=== PATIENT | female | born 1970 | race Caucasian/White ===

== ENCOUNTER 2019-12-16 15:34 | Emergency (ER) | payer OTHER, SELFPAY ==
--- NOTE | ~2019-12-16 | XR_ITS ---
XR chest 1V portable DATE: 12/16/2019 16:55 INDICATION: Cough, shortness of breath, fever TECHNIQUE: Portable AP chest on 12/16/2019 at 1655 hours. COMPARISON: None FINDINGS: Normal heart size. No hilar or mediastinal enlargement. There is minimal atelectasis at the lung bases. No pulmonary infiltrate or consolidation is noted otherwise. Small right pleural effusio n is not excluded. No pneumothorax. IMPRESSION: Minimal bilateral basilar atelectasis; possible small right pleural effusion Reviewed, dictated and finalized at location A.
--- NOTE | ~2019-12-16 | CT_ITS ---
EXAMINATION: CTA chest PE protocol DATE: 12/16/2019 17:50 INDICATION: Shortness of breath. Cough. Elevated d-dimer. TECHNIQUE: Computed tomography angiography (CTA) of the chest was performed with 100 mL Omnipaque-350 intravenous contrast timed to evaluate the pulmonary arteries. Coronal maximum intensity projection 3D-reconstructions were created by the technologist. Automated exposure control and iterative reconst ruction technique were employed. Exam dose: 175.94 mGy-cm total exam DLP. COMPARISON: 12/16/2019 portable AP chest FINDINGS: The pulmonary arteries are moderately opacified, without evidence of pulmonary embolism. No thoracic aortic aneurysm or dissection. Normal heart size. No pericardial or pleural effusion. No hilar or mediastinal mass lesion or lymphadenopathy is detected. There is prominent discoid atelectasis or scarring in the right lower lobe and to a lesser extent lef t base of the lingula and lower lobe. IMPRESSION: Lingular and bilateral lower lobe discoid atelectasis or scarring No evidence of pulmonary embolism is detected Reviewed, dictated and finalized at [facility]. Reviewed, dictated and finalized at location A.
[2019-12-16 15:47] VITALS: BP 120/86; PULSE 112; RESP 16; TEMP 36.2; O2SAT 99
--- NOTE | 2019-12-16 16:24 | ECG_ITS ---
Measurements Intervals Clubb Rate: 111 P: 1 VA: 168 QRS: 52 QRSD: 88 T: 49 QT: 321 QTc: 438 Interpretive Statements SINUS TACHYCARDIA NONSPECIFIC T-WAVE ABNORMALITY- INFERIOR LEADS MINIMAL Q WAVES- LATERAL LEADS ABNORMAL ECG Electronically Signed On 12-16-2019 20:35:55 CDT by Will Gutierrez D.O.
[2019-12-16] MEDS: KETOROLAC 30 MG/ML VIAL (*BKC) IV PUSH (16:44)
[2019-12-16] MEDS: SODIUM CHLORIDE 0.9% IV 1,000 ML 999 ML IV CONT (16:44)
[2019-12-16 16:51] VITALS: BP 119/89; PULSE 110; RESP 18; O2SAT 95
[2019-12-16 17:00] LABS: Basophils Percent Auto 0.5 % (0.2-1.2); Hematocrit 38.8 % (37.0-47.0); Hemoglobin 12.8 g/dL (12.0-15.0); Immature Granulocyte Absolute 0.02 K/mm3 (0.00-0.031); Immature Granulocyte Percent A 0.3 % (0-0.5); Lymphocytes Absolute Auto 0.78 K/mm3 (0.9-3.2); Lymphocytes Percent Auto 12.3 % (18.3-44.2); Mean Corpuscular Hemoglobin 28.4 pg (26-34); Mean Corpuscular Volume 86.2 fl (80-100); Mean Platelet Volume 10.5 fl (7.4-10.4); Monocytes Absolute Auto 0.6 K/mm3 (0.1-0.6); Monocytes Percent Auto 10.1 % (2.6-8.5); Neutrophils Absolute Auto 4.9 K/mm3 (1.3-6.7); Neutrophils Percent Auto 76.8 % (45.5-73.1); Platelet Count Result 206 k/mm3 (150-375); Red Cell Distribution Width 13.6 % (11.5-14.5); White Blood Count 6.3 K/mm3 (4.5-10.0)
--- NOTE | 2019-12-16 17:01 | ED.HA ---
HPI - Headache General Chief Complaint: Headache Stated Complaint: HEADACHE, COUGH, WEAK Time Seen by Provider: 12/16/19 15:50 Source: patient Mode of arrival: ambulatory Limitations: no limitations History of Present Illness HPI Narrative: This is a 49 year old female that presents to the ER for cold symptoms x 2 days. Reports congestion, headache, and cough. Also reports nausea and vomiting. Reports fevers. Denies abdominal pain, diarrhea or dysuria. Related Data Allergies Allergy/AdvReac Type Severity Reaction Status Date / Time No Known Allergies Allergy Unverified 12/16/19 15:50 Review of Systems Review of Systems: Narrative: CONSTITUTIONAL: Reports fever EYES: Denies visual changes ENT: Reports rhinorrhea, congestion CARDIOVASCULAR: Denies chest pain, or edema. RESPIRATORY: Reports cough and dyspnea. GASTROINTESTINAL: Reports nausea and vomiting. Denies abdominal pain, or diarrhea. GENITOURINARY: Denies dysuria NEUROLOGIC: Reports headache. Denies numbness, or weakness. All systems reviewed & are unremarkable except as noted in HPI and below PMFSH Past Medical History Medical History (Updated 12/16/19 @ 19:23 by Sandi Manning PA-C) No active medical problems Social History Social History (Updated 12/16/19 @ 17:04 by Sandi Manning PA-C) Substance use: never Gender identity (if verbalized by the patient): Female Exam Narrative: Exam Narrative: GENERAL: Well-appearing, well-nourished, and in no acute distress. HEAD: Normocephalic, atraumatic. EYES: PERRLA and EOMI. ENT: Nares clear, no rhinorrhea or epistaxis. Mucous membranes moist. Oropharynx without tonsillar hypertrophy exudate or other lesions. Bilateral TMs pearly boo non-bulging NECK: Supple. No adenopathy or masses. CHEST: Clear to auscultation. No respiratory distress. No wheezes rales or rhonchi HEART: Regular rate and rhythm. No murmur heard. Normal peripheral pulses. ABDOMEN: Soft, nontender, nondistended, normal active bowel sounds. EXTREMITIES: Normal range of motion. No edema. SKIN: Warm, dry, no rash. NEURO: No focal deficits. Alert and oriented x3. Cranial nerves II through XII grossly intact PSYCH: Normal mood and affect Course Vital Signs Vital signs: Vital Signs Temperature 97.2 F L 12/16/19 15:47 Pulse Rate 112 H 12/16/19 15:47 Respiratory Rate 16 12/16/19 15:47 Blood Pressure 120/86 12/16/19 15:47 Pulse Oximetry 99 12/16/19 15:47 Temperature 97.2 F L 12/16/19 17:14 Pulse Rate 99 12/16/19 18:08 Respiratory Rate 18 12/16/19 18:08 Blood Pressure 113/81 12/16/19 18:08 Pulse Oximetry 96 12/16/19 18:08 MDM - Headache MDM Narrative Medical decision making narrative: Patient presents to the emergency department for cold symptoms x2 days. She is afebrile and nontoxic-appearing. Tachycardic upon arrival, this normalized with IV fluids. CBC and metabolic panel without acute findings. CRP and lactic are not elevated. Influenza screen was negative. SARS-CoV-2 was sent. D-dimer was elevated, so CTA of the chest was obtained. No evidence of pulmonary embolism or pneumonia. Patient was updated on case findings. She reports relief with migraine cocktail. She is stable and felt appropriate for further outpatient evaluation. She was given warnings to return to the ER Lab Data Attestation: I reviewed the patient's lab results. Result diagrams: 12/16/19 16:40 12/16/19 16:40 Labs: Lab Results 12/16/19 12/16/19 12/16/19 Range/Units 16:40 16:40 16:40 WBC 6.3 (4.5-10.0) K/mm3 RBC 4.50 (4.2-5.4) M/mm3 Hgb 12.8 (12.0-15.0) g/dL Hct 38.8 (37.0-47.0) % MCV 86.2 (80-100) fl MCH 28.4 (26-34) pg MCHC 33.0 (32-36) g/dl RDW 13.6 (11.5-14.5) % Plt Count 206 (150-375) k/mm3 MPV 10.5 H (7.4-10.4) fl Immature Gran % (Auto) 0.3 (0-0.5) % Neut % (Auto) 76.8 H (45.5-73.1) % Lymph % (Auto) 12.3 L (18.3-44.2) %
[2019-12-16 17:08] LABS: INR 1.1; Prothrombin Time 13.4 Seconds (11.1-14.7)
[2019-12-16 17:09] LABS: Partial Thromboplastin Time 63.1 SECONDS (22.3-36.8)
[2019-12-16 17:11] LABS: Lactic Acid Reflex 0.7 mmol/L (0.7-2.1)
[2019-12-16 17:14] VITALS: TEMP 36.2
[2019-12-16 17:15] LABS: Alanine Aminotransferase 23 U/L (4-35); Albumin Level 4.4 g/dL (3.5-5.1); Alkaline Phosphatase 77 U/L (38-126); Anion Gap 9 mmol/L (8-16); Aspartate Amino Transferase 23 U/L (14-36); Bilirubin,Total 0.6 mg/dL (0.2-1.3); Blood Urea Nitrogen 8 mg/dL (7-17); CRP 1.3 mg/dL (<1.0); Calcium 9.2 mg/dL (8.4-10.2); Carbon Dioxide 27 mmol/L (22-30); Chloride 102 mmol/L (98-107); Estimated CRCL calculation 67 ml/min; Estimated Glomerular Filt Rate > 60; Glucose 107 mg/dL (65-105); Lactate Dehydrogenase 439 U/L (313-618); Lipase 31 U/L (23-300); Sodium 138 mmol/L (137-145)
[2019-12-16 18:08] VITALS: BP 113/81; PULSE 99; RESP 18; O2SAT 96
[2019-12-16] MEDS: diphenhydrAMINE HCl INJ 50 MG/ML VIAL 25 MG IV PUSH (18:19)
[2019-12-16] MEDS: METOCLOPRAMIDE HCL INJ 10 MG/2 ML VIAL IV PUSH (18:19)
[2019-12-16 19:52] VITALS: BP 107/77; PULSE 103; RESP 17; TEMP 37.1; O2SAT 96
[2019-12-17 11:41] LABS: SARS-CoV-2 RNA PCR Positive
== END 2019-12-16 20:12 | disposition home or self-care (01) ==
PROVIDERS: Physician Assistant; Emergency Provider Emergency Medicine
DX: U07.1 COVID-19 (principal); R00.0 Tachycardia, unspecified; R94.31 Abnormal electrocardiogram [ECG] [EKG]
CPT/HCPCS: 36415; 71045; 71275; 80053; 82728; 83605; 83615; 83690; 85025; 85380; 85610; 85730; 86140; 87635; 87804; 93005; 96361; 96374; 96375; 99284; C9803; J0131; J1200; J1885; J2765; J7030; Q9967; U0003

== ENCOUNTER 2022-10-06 20:31 | Emergency (ER) | payer BC, SELFPAY ==
--- NOTE | ~2022-10-06 | XR_ITS ---
EXAM: XR hip LT 2V w AP pelvis DATE: 10/06/2022 21:22 HISTORY: fall onto concrete last P.M.; pain low back, post Lt hip . COMPARISON: None available. FINDINGS: Normal mineralization. No fracture or dislocation. No lytic or blastic lesion. Mild bilate ral hip osteoarthritis. No erosion or periosteal change. Pelvic phleboliths. IMPRESSION: No acute osseous finding in the pelvis or left hip. Reviewed, dictated and finalized at location K.
--- NOTE | ~2022-10-06 | CT_ITS ---
EXAMINATION: CT lumbar spine wo con DATE: 10/06/2022 21:23 INDICATION: lbp s/p fall . TECHNIQUE: Computed tomography (CT) of the lumbar spine was performed without intravenous contrast. A utomated exposure control and iterative reconstruction technique were employed. The dose-length produ ct was 464.66 mGy-cm. COMPARISON: None. FINDINGS: 5 nonrib-bearing lumbar-type vertebral bodies. Pedicles intact. Normal vertebral body align ment. Vertebral body heights preserved. Mild multilevel marginal osteophytosis and disc space narrowi ng. Mild multilevel facet arthropathy. No severe central canal or neural foraminal narrowing. 3.9 cm soft tissue density mass in the right pelvis. IMPRESSION: No acute fracture or traumatic malalignment in the lumbar spine. 3.9 cm soft tissue mass in the right pelvis may represent an enlarged right ovary. Recommend nonemerg ent but timely pelvic ultrasound for further evaluation. Reviewed, dictated and finalized at location K. IMPRESSION: No acute fracture or traumatic malalignment in the lumbar spine. 3.9 cm soft tissue mass in the right pelvis may represent an enlarged right ova ry. Recommend nonemergent but timely pelvic ultrasound for further evaluation.
[2022-10-06 20:34] VITALS: BP 153/96; PULSE 98; RESP 16; TEMP 37; O2SAT 98
[2022-10-06] MEDS: HYDROcodone/acetaminophen (*CRX) 5-325 MG TABLET 1 TAB PO (20:50)
[2022-10-06] MEDS: diazePAM (*CRX) 2 MG TABLET PO (20:50)
--- NOTE | 2022-10-06 21:47 | ED.LOWEXIN ---
HPI - Extremity Injury (Lower) General Chief Complaint: Extremity Injury, Lower Stated Complaint: fall last noc, L hip pain Time Seen by Provider: 10/06/22 20:46 History of Present Illness HPI Narrative: Last night in the dark patient got spooked by a spiderweb, stumbled backwards and tripped over her purse, landing on her left hip, since then she has had very bad pain in the hip, she is now able to bear weight and ambulate albeit with lots of pain, also worse in certain positions especially sitting, no focal numbness or weakness, she has tried lidocaine patch, ibuprofen, with some very mild improvement but still a lot of pain. Pain seems to radiate to her groin. Related Data Allergies Allergy/AdvReac Type Severity Reaction Status Date / Time No Known Allergies Allergy Unverified 12/16/19 15:50 Review of Systems Review of Systems: CONST: No fever. HEENT: No head injury C/V: No chest pain RESP: No difficulty breathing GI: No abdominal pain : No dysuria. M/S: Left hip pain SKIN: No rash. NEURO: [No headache or focal numbness or weakness] PSYCH: [No depression] [facility] Past Medical History Medical History (Updated 10/06/22 @ 22:08 by Zeina Ramirez MD) No active medical problems Social History Social History (Updated 12/16/19 @ 17:04 by Sandi Manning PA-C) Substance use: never Gender identity (if verbalized by the patient): Female Exam Narrative: EXAMINATION OF ORGAN SYSTEMS/BODY AREAS: Constitutional: Vital signs per nursing GENERAL: Appears quite uncomfortable HEAD: Normal with no signs of head trauma. EYES: EOMI, conjunctiva normal ENT: Hearing grossly intact LUNGS: Nonlabored breathing. HEART: [Regular rate and rhythm] ABD: No distension EXT: Small bruise L lateral hip and tenderness to palpation to L hip, passive flexion/extension without excruciating pain, warm and well-perfused leg, no deformity. No tenderness at knee or ankle. SKIN: Tiny bruise lateral hip NEURO: [Alert and oriented x 3. No gross focal sensory or strength deficits.] PSYCH: Normal affect Course Vital Signs Vital signs: Vital Signs Temperature 98.6 F 10/06/22 20:34 Pulse Rate 98 10/06/22 20:34 Respiratory Rate 16 10/06/22 20:34 Blood Pressure 153/96 H 10/06/22 20:34 Pulse Oximetry 98 10/06/22 20:34 Oxygen Delivery Room Air 10/06/22 20:34 Temperature 98.6 F 10/06/22 20:34 Pulse Rate 98 10/06/22 20:34 Respiratory Rate 16 10/06/22 20:34 Blood Pressure 153/96 H 10/06/22 20:34 Pulse Oximetry 98 10/06/22 20:34 Oxygen Delivery Room Air 10/06/22 20:34 MDM - Extremity Injury (Lower) MDM Narrative Medical decision making narrative: 52-year-old female presents with traumatic left hip pain, this was a mechanical fall, she has tried multimodal pain therapies with only minimal improvement, on exam she is able to bear weight and ambulate albeit antalgic gait, there is small bruise noted and obvious deformity, there is severe pain with passive range of motion there is tenderness palpation to the lower lumbar spine midline. She has no focal neurologic deficits and is neurovascularly intact. X-ray of hip obtained and on my own independent interpretation does not show any obvious acute abnormality. CT L-spine does not show any acute fracture. Muscle relaxant and [place] provided here, her daughter is here to take her home so she is not driving. There is some mild improvement after medications, I have informed her of the findings, I did offer her a CT of the hip in case there is a missed fracture, however with shared decision-making she opted to follow-up as an outpatient with orthopedics as after some discussion we did agree that an MRI may be more helpful as it would detect soft tissue injury. She also does not have any obvious severe arthritis or other issues that would obscure x-ray for ruling out fracture. I have let her know that she can was return to the ER if the pain worsens when s
== END 2022-10-06 22:22 | disposition home or self-care (01) ==
PROVIDERS: Emergency Provider Emergency Medicine; PCP Nurse Practitioner Family
DX: S73.102A Unspecified sprain of left hip, initial encounter (principal); W18.09XA Striking against other object with subsequent fall, initial encounter
CPT/HCPCS: 72131; 73502; 99284; A9270

== ENCOUNTER 2024-08-16 12:10 | Outpatient (CLI) | payer BC, SELFPAY ==
--- NOTE | ~2024-08-16 | XR_ITS ---
Clinical Indication: Chest pain PA and lateral views of the chest: Comparison: 12/16/2019 Findings: The lungs are clear, without evidence of focal consolidation or pleural effusion. Cardiome diastinal silhouette is within normal limits. Bones and soft tissues are unremarkable. Impression: Normal chest. Reviewed, dictated and finalized at location . Impression: Normal chest.
== END 2024-08-16 12:11 | disposition home or self-care (01) ==
LOC: MICIMG 12:13
PROVIDERS: PCP Nurse Practitioner Family; Visit Provider Nurse Practitioner Family
DX: R07.9 Chest pain, unspecified (principal)
CPT/HCPCS: 71046